=== PATIENT | female | born 1975 | race Caucasian/White ===

== ENCOUNTER 2022-09-08 11:02 | Outpatient (OUT) | payer OTHER, SELFPAY ==
--- NOTE | 2022-09-08 11:13 | ECG_ITS ---
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
--- NOTE | 2022-09-08 11:30 | XR_ITS ---
[address] [address] Patient Name: BIGG THOMPSON MRN: [id number] date: 1975 Sex: F Assigned Patient Location: CARD Current Patient Location: Accession/Order Number: [id number] Exam Date: 09/08/2022 11:30 Report Date: 09/09/2022 07:26 At the request of: STEPHANIE ENCARNACION Procedure: XR chest 2V EXAMINATION: XR chest 2V HISTORY: Chronic Cough R05.3 COMPARISON: No relevant comparison available. TECHNIQUE: PA and lateral FINDINGS: LUNGS: No significant pulmonary parenchymal abnormalities. VASCULATURE: No increased pulmonary vasculature. PLEURA: No pneumothorax, effusion, or pleural thickening. CARDIAC: No cardiomegaly or cardiac silhouette abnormality. MEDIASTINUM: No visible mass or adenopathy. BONES: No fracture or visible bone lesion. S-shaped scoliosis OTHER: Negative. IMPRESSION: No acute cardiopulmonary process Electronically authenticated by: EVELYN CLAROS Date: 09/09/2022 07:26
[2022-09-08 12:00] LABS: Basophils Absolute Auto 0.1 10^3/uL (0.0-0.1); Basophils Percent Auto 0.6 % (0.2-2.0); Eosinophils Absolute Auto 0.1 10^3/uL (0.0-0.7); Hematocrit 44.4 % (36.0-48.0); Hemoglobin 14.5 g/dL (12.0-16.0); Immature Granulocytes Abs Auto 0.04 10^3/uL (0.00-0.03); Immature Granulocytes Pct Auto 0.5 % (0.0-0.5); Lymphocytes Absolute Auto 0.9 10^3/uL (1.2-3.8); Mean Corpuscular HGB Conc 32.7 g/dL (29.9-35.2); Mean Corpuscular Hemoglobin 29.4 pg (26.7-34.0); Mean Corpuscular Volume 90.1 fL (81.0-99.0); Mean Platelet Volume 10.1 fL (9.5-13.5); Monocytes Absolute Auto 0.6 10^3/uL (0.3-0.8); Monocytes Percent Auto 7.3 % (1.7-12.0); Neutrophils Absolute Auto 6.1 10^3/uL (1.4-6.5); Neutrophils Percent Auto 78.6 % (43.0-75.0); Platelet Count 326 10^3/uL (150-450); Red Blood Count 4.93 10^6/uL (4.20-5.40); Red Cell Distribution Width 12.4 % (11.0-15.0); White Blood Count 7.8 10^3/uL (4.0-11.0)
[2022-09-08 12:16] LABS: Anion Gap 11.2; BUN Creatinine Ratio 16.5; Calcium 9.2 mg/dL (8.5-10.1); Carbon Dioxide 27.4 mmol/L (21.0-32.0); Chloride 105 mmol/L (98-107); Estimated GFR (African America >60 (>=60); Estimated GFR (Non-African Ame >60 (>=60); Glucose 84 mg/dL (74-106); Potassium 3.6 mmol/L (3.5-5.1); Sodium 140 mmol/L (136-145)
[2022-09-08 12:30] LABS: D Dimer 0.24 mg/L FEU (<=0.59)
== END 2022-09-08 11:03 | disposition home or self-care (01) ==
LOC: CARD 11:06
PROVIDERS: PCP Family Medicine; Visit Provider Family Medicine
DX: R05.3 Chronic cough (principal); R00.0 Tachycardia, unspecified
CPT/HCPCS: 36415; 71046; 80048; 84443; 85025; 85378; 93005

== ENCOUNTER 2022-09-12 08:10 | Outpatient (OUT) | payer OTHER, SELFPAY ==
--- NOTE | 2022-09-12 08:30 | CA_ITS ---
Patient Name Site Name BIGG THOMPSON [facility] Account No Medical Record Number Age Sex Date Time [id number] [facility]:[id number] F 09/12/2022 08:18 At the Request Of Emily Prather ECHOCARDIOGRAM REPORT PROCEDURE: CA ECHO DOPPLER COMPLETE INDICATIONS: Abnormal EKG COMPARISON: None. DESCRIPTION: COMPLETE ECHOCARDIOGRAM Real-time transthoracic echocardiography with 2D, M-mode, spectral and color flow Doppler performed. QUALITY: Technical quality was good. LEFT VENTRICLE: Normal chamber size. Borderline left ventricular hypertrophy. Normal systolic function. Normal LV EF: Normal left ventricular ejection fraction, (>55%). DIASTOLIC: Normal diastolic function. ATRIAL SEPTUM: Vvisually appears intact. LEFT ATRIUM: Normal chamber size. RIGHT ATRIUM: Normal chamber size. RIGHT VENTRICLE: Normal chamber size. Normal right ventricular systolic function. TRICUSPID VALVE: Normal mobility and thickness. No stenosis with mild regurgitation. No evidence of pulmonary hypertension. RVSP 22 mmHg MITRAL VALVE: Normal mobility and thickness. No evidence of mitral valve stenosis. There is no mitral annular calcification. No mitral regurgitation. AORTIC VALVE: Normal trileaflet appearance. No visible sclerosis. Normal leaflet mobility. No evidence of aortic valve stenosis. No aortic regurgitation. AORTIC ROOT: Normal diameter and appearance. PULMONIC VALVE: Normal thickness and mobility. No stenosis. No regurgitation. PERICARDIUM: No evidence of pericardial effusion. IVC: Collapses with inspirations. PLEURA: CONCLUSION: 1. Normal ventricular function. LVEF is 55 to 60%. 2. No significant valvular dysfunction. 3. Normal right-sided pressures. 4. No pericardial effusion. Adult Echocardiography Procedure Report Left Ventricle LVEDD (3.7 - 5.6 cm): 3.36 cm LVESD (2.2 - 4.0 cm): 2.33 cm LVIVS thickness (0.6 - 1.2 cm): 1.04 cm LVPW thickness (0.5 - 1.0 cm): 0.88 cm e': 0.11 m/s E - e': 6.50 LVOT Max Gradient: 4.83 mm[Hg], 5.48 mm[Hg] LVOT Area (cm2): 1.13 m/s Peak Velocity (LVOT): 1.10 m/s, 1.17 m/s Mean Velocity (LVOT): 0.82 m/s LVOT Diameter 2.12 cm Left Atrium LA Volume Index (2D A2C): 17.78 ml/m2 Left Atrium Systolic Dimension: 3.06 cm Mitral Valve MV E to A Ratio: 0.75 Mitral Valve A-Wave Peak Velocity: 0.92 m/s Mitral Valve E-Wave Peak Velocity: 0.69 m/s Right Ventricle Aorta AO Root Diam: 3.03 cm Ascending Ao Diam: 3.08 cm Aortic Valve AoV Area (Peak Jagdish): 3.38 cm2, 3.28 cm2, 3.49 cm2 AoV Area (VTI): 2.71 cm2, 2.72 cm2, 2.71 cm2 Peak Velocity(Antegrade Flow): 1.19 m/s, 1.19 m/s Peak Gradient(Antegrade Flow): 5.64 mm[Hg], 5.64 mm[Hg] Mean Velocity(Antegrade Flow): 0.85 m/s, 0.89 m/s Mean Gradient(Antegrade Flow): 3.26 mm[Hg], 3.52 mm[Hg] Velocity Time Integral: 21.79 cm, 22.76 cm Tricuspid Valve Peak Velocity (Regurgitant Flow): 2.18 m/s, 2.11 m/s Pulmonic Valve Peak Velocity: 0.87 m/s Peak Gradient: 2.98 mm[Hg], 3.03 mm[Hg] Right Atrium Right Atrium Systolic Pressure: 11.98 ml, 11.07 ml, 12.88 ml Dictated by: Ben Robles M.D. on 09/12/2022 at 17:56 Approved by: Ben Robles M.D. on 09/12/2022 at 17:58
== END 2022-09-12 08:11 | disposition home or self-care (01) ==
LOC: CARD 08:10
PROVIDERS: PCP Family Medicine; Visit Provider Family Medicine
DX: R94.31 Abnormal electrocardiogram [ECG] [EKG] (principal)
CPT/HCPCS: 93306

== ENCOUNTER 2023-12-11 15:56 | Outpatient (OUT) | payer OTHER, SELFPAY ==
--- NOTE | 2023-12-11 16:15 | XR_ITS ---
[address] [address] Patient Name: BIGG THOMPSON MRN: [id number] date: 1975 Sex: F Assigned Patient Location: LAB Current Patient Location: Accession/Order Number: [id number] Exam Date: 12/11/2023 16:08 Report Date: 12/12/2023 16:37 At the request of: STEPHANIE ENCARNACION Procedure: XR chest 2V EXAM: XR chest 2V CLINICAL INDICATION: Left Sided Chest Wall Pain COMPARISON: 09/08/2022 TECHNIQUE: 2 views of chest performed. FINDINGS: Lungs: No convincing focal infiltrates. No pleural effusion or pneumothorax. Heart: Cardiac and mediastinal contours are unremarkable. No overt pulmonary vascular congestion. Osseous structures: No acute abnormalities. XR/XR chest 2V IMPRESSION: No acute cardiopulmonary process. Electronically authenticated by: DOTTY SANZ Date: 12/12/2023 16:37
[2023-12-11 17:45] LABS: Free T4 1.08 ng/dL (0.76-1.46)
[2023-12-11 17:53] LABS: Thyroid Stimulating Hormone 2.242 uIU/mL (0.358-3.740)
== END 2023-12-11 15:57 | disposition home or self-care (01) ==
LOC: LAB 15:57
PROVIDERS: PCP Family Medicine; Visit Provider Family Medicine
DX: E03.9 Hypothyroidism, unspecified (principal); R07.89 Other chest pain
CPT/HCPCS: 36415; 71046; 84439; 84443

== ENCOUNTER 2024-10-11 10:49 | Outpatient (OUT) | payer OTHER, SELFPAY ==
--- OUTSIDE RECORDS SUMMARY | 2024-10-11 10:51 | XMS_ITS | Encounter Summary ---
Author Organization [facility] Address [address] [place] [address] [place] [address] Care Team Providers Care Truck Body Repairer Name Role Phone Emily Prather MD Primary Care Provider [phone] Encounter Details Date Type Department Care Team (Late st Contact Info) Description 09/30/2024 Telephone [facility] [place] [address] [place] [phone] Emi Hinton MA Social History Tobacco Use Types Packs/Day Years Used Date Smoking Tobacco: Never Smokeless Tobacco: Never Alcohol Use Standard Drinks/Week Comments Not Currently 0 (1 standard drink = 0.6 oz pur e alcohol) AUDIT-C Answer Date Recorded Q1: How often do you have a drink containing alc ohol? Monthly or less 09/25/2024 Q2: How many drinks containi ng alcohol do you have on a typical day when you are drinking? 1 or 2 09/25/2024 Q3: How often do you have si x or more drinks on one occasion? Never 09/25/2024 PHQ-2 Answer Date Recorded Patient Health Questionnaire-2 Score 0 09/25/2024 Comments No Sex and Gender Information Value Date Recorded Sex Assigned at Not on file Legal Sex Female 7:24 PM EDT Gender Identity Not on file Sexual Orientation Not on file documented as of this encounter Miscellaneous Notes * Telephone Encounter - Emi Hinton MA - 09/30/2024 3:43 PM EDT Pt emailed. Printed labs to be scanned into chart. documented in this encounter Plan of Treatment Upcoming Encounters Date Type Department Care Team (Late st Contact Info) Description 09/26/2025 10:45 AM EDT Office Visit [facility] [address] [place] [phone] Reji Salcido DO [address] [place] [address] documented as of this encounter Visit Diagnoses Not on filedocumented in this encounter Care Teams Truck Body Repairer Relationship Specialty Start Date End Date Emily Prather MD [address] [facility] [place] [phone] PCP - General Family Medicine 09/20/23 documented as of this encounter
--- OUTSIDE RECORDS SUMMARY | 2024-10-11 10:51 | XMS_ITS | Clinical Summary ---
Author Organization [facility] Address [id number] [address] [place] [address] Care Team Providers Care Water Meter Installer Name Role Phone Emily Prather MD Primary Care Provider [phone] Allergies Active Allergy Reactions Criticality Noted Date Comments Pneumococcal 23-Valent Polysaccharide Vaccine Other (See Comments) 12/08/2014 Chills, tremors, nausea, headache Medications acyclovir (ZOVIRAX) 400 mg tablet 2 Active albuterol (PROVENTIL HFA;VENTOLIN HFA) 90 mcg/actuation inhaler INHALE 2 PUFFS INTO THE LUNGS EVERY 4 HOURS NEEDED 2 Active azithromycin (ZITHROMAX) 250 mg tablet TAKE 2 TABLETS BY MOUTH TODAY, THEN TAKE 1 TABLET DAILY FOR 4 DAYS 2 Active BENLYSTA 200 mg/mL auto-injector 2 Active belimumab (BENLYSTA) 200 mg/mL auto-injector Inject 200 mg under the skin. 2 Active ENSKYCE 0.15-0.03 mg per tablet 2 Active hydrOXYchloroQU INE (PLAQUENIL) 200 mg tablet 2 Active ketoconazole (NIZORAL) 2 % cream Apply topically daily. 2 Active SYNTHROID 50 mcg tablet 2 Active methylPREDNISol one (MEDROL, MYESHA,) 4 mg tablet TAKE 6 TABLETS ON DAY 1 DIRECTED ON PACKAGE AND DECREASE BY 1 TAB EACH DAY FOR A TOTAL OF 6 DAYS 2 Active mycophenolate (CELLCEPT) 500 mg tablet 2 Active sertraline (ZOLOFT) 25 mg tablet Take 1 tablet by mouth in the morning. 1 Active traZODone (DESYREL) 50 mg tablet 2 Active venlafaxine XR (EFFEXOR-XR) 75 mg 24 hr capsule 2 Active Social History Tobacco Use Types Packs/Day Years Used Date Smoking Tobacco: Never Smokeless Tobacco: Never Alcohol Use Standard Drinks/Week Comments Never 0 (1 standard drink = 0.6 oz pur e alcohol) Childcare Answer Date Recorded Childcare Unknown 08/15/2018 Employment Answer Date Recorded Employment Unknown 08/15/2018 Comments Unknown Sex and Gender Information Value Date Recorded Sex Assigned at Not on file Legal Sex Female 11:40 AM EDT Gender Identity Not on file Sexual Orientation Not on file Last Filed Vital Signs Vital Sign Reading Time Taken Comments Blood Pressure 180/105 07/01/2021 3:54 PM EDT Pulse 108 07/01/2021 3:54 PM EDT Temperature - - Respiratory Rate - - Oxygen Saturation 100% 07/01/2021 3:54 PM EDT Inhaled Oxygen Concentration - - Weight 73.9 kg (163 lb) 07/01/2021 3:54 PM EDT Height 200.7 cm (6' 7 ) 07/01/2021 3:54 PM EDT Body Mass Index 18.36 07/01/2021 3:54 PM EDT Plan of Treatment Health Maintenance Due Date Last Done Comments Depression Screening 1988 Tobacco Screening 1988 Adult BMI Screening 1994 DTaP,Tdap and Td Vaccines (1 - Tdap) 11/05/1995 Pap Smear 1997 COVID-19 Vaccine (2023-2 5 season) 2023 05/08/2020, 04/17/2020 Influenza Vaccine 2024 11/24/2020, , 12/05/2018, Additional history exists Medical Devices Not on file Insurance [employer] Care Teams Water Meter Installer Relationship Specialty Start Date End Date Emily Prather MD [address] [place] [address] PCP - General Family Medicine 06/10/21
--- OUTSIDE RECORDS SUMMARY | 2024-10-11 10:51 | XMS_ITS | Encounter Summary ---
Author Organization [facility] Address [address] [place] [address] Phone Care Team Providers Care Rehab Spec Name Role Phone Emily Prather MD Primary Care Provider [phone] Encounter Details Date Type Department Care Team (Late st Contact Info) Description 09/08/2022 Orders Only [facility] [address] [place] [address] Conversion, Onbase Social History Tobacco Use Types Packs/Day Years Used Date Smoking Tobacco: Never Assessed Comments Unknown Sex and Gender Information Value Date Recorded Sex Assigned at Not on file Legal Sex Female 10:03 AM EDT Gender Identity Not on file Sexual Orientation Not on file documented as of this encounter Plan of Treatment Upcoming Encounters Date Type Department Care Team (Late st Contact Info) Description 08/12/2025 10:00 AM EDT Office Visit [address] [place] [phone] Nupur Lopez MD [address] [facility] [address] [place] [address] Scheduled Orders Name Type Priority Associated Diagnoses Orde r Schedule OUTSIDE LAB SCAN Lab Ordered: 09/08/2022 documented as of this encounter Visit Diagnoses Not on filedocumented in this encounter Care Teams Rehab Spec Relationship Specialty Start Date End Date Emily Prather MD [facility] [place] [address] [place] [address] PCP - General 09/19/22 documented as of this encounter
--- OUTSIDE RECORDS SUMMARY | 2024-10-11 10:51 | XMS_ITS | Clinical Summary ---
Author Organization [facility] Address [address] [place] [address] Care Team Providers Care Design Eng Name Role Phone Emily Prather MD Primary Care Provider [phone] Allergies No known active allergies Medications Desogestrel-Ethi nyl Estradiol (DESOGEN) 0.15-30 mg-mcg per tablet Take 1 tablet by mouth once daily. 0 08/19/2011 Active predniSONE 5 mg tablet Take 1 tablet by mouth as needed. 08/19/2011 Active buPROPion XL (WELLBUTRIN XL) 150 mg 24 hr tablet Take 1 tablet by mouth once daily. 0 08/19/2011 Active hydroxychloroqui ne (PLAQUENIL) 200 mg tablet Take 1 tablet by mouth twice daily. 0 08/19/2011 Active Cholecalciferol, Vitamin D3, 2,000 unit Tab Take 1 tablet by mouth once daily. 0 08/19/2011 Active cycloSPORINE (RESTASIS) 0.05 % ophthalmic emulsion Use 1 Drop in both eyes twice daily. 0 08/19/2011 Active Active Problems Problem Noted Date Diagnosed Date Lupus (systemic lupus erythematosus) 08/19/2011 Family History Medical History Relation Comments Arthritis Mother Colon Cancer Paternal Grandfather Cancer Paternal Grandmother Relation Status Comments Father Alive Mother Alive Paternal Grandfather Paternal Grandmother Social History Tobacco Use Types Packs/Day Years Used Date Smoking Tobacco: Never Alcohol Use Standard Drinks/Week Comments Yes 0 (1 standard drink = 0.6 oz pur e alcohol) weekends Comments Unknown Sex and Gender Information Value Date Recorded Sex Assigned at Not on file Legal Sex Female 10:14 AM EST Gender Identity Not on file Sexual Orientation Not on file Last Filed Vital Signs Vital Sign Reading Time Taken Comments Blood Pressure 146/80 08/19/2011 10:31 AM EDT Pulse - - Temperature 37.1 C (98.8 F) 08/19/2011 10:31 AM EDT Respiratory Rate - - Oxygen Saturation - - Inhaled Oxygen Concentration - - Weight 64.9 kg (143 lb) 08/19/2011 10:31 AM EDT Height 169.5 cm (5' 6.75 ) 08/19/2011 10:31 AM E DT Body Mass Index 22.57 08/19/2011 10:31 AM EDT Plan of Treatment Health Maintenance Due Date Last Done Comments Anxiety Screening 1994 Depression Screening 1994 HIV Screening 1994 DTaP,Tdap,Td Vaccine (1 - Tdap) 11/05/1995 Hepatitis B Vaccine (1 of 3 - 19+ 3-dose series) 11/04 Cervical Cancer Screening 09/03/2013 09/03/[address] Colonography 2021 Cologuard (FIT-DNA) 2021 Colonoscopy 2021 Colorectal Cancer Screening 2021 Diabetes Screening 2021 08/19/2011 Fecal Occult Blood 2021 Lipid Screening 2021 Sigmoidoscopy 2021 Influenza Vaccine (#1) 2024 Hepatitis C Screening Completed 08/19/2011 Procedures Procedure Name Priority Date/Time Associated Diagnosis Comments HEP REMOTE PANEL BL Routine 08/19/2011 1 2:28 PM EDT Lupus (systemic lupus erythematosus) COMPREHENSIVE METABOLIC PANEL Routine 08/19/2011 12:28 PM EDT Lupus (systemic lupus erythematosus) from Last 3 Months or Most Recently Relevant to Health Maintenance Results * HEP REMOTE PANEL BL (08/19/2011 12:28 PM EDT) Hep B Core Ab, Total Negative NEGAT [facility] Hep C Antibody IA Negative NEGAT [facility] HBsAg Negative NEGAT [facility] Hep B Surface Ab, Qual Negative NEGAT [facility] Comment: A negative Hepatitis B Surface Antibody is indicative of: 1)no prior exposure to HBV, 2)lack of antibody response to an acute or chronic HBV infection, 3)lack of antibody response to HBV vaccination, or, 4)loss of immunity that followed either vaccination or infection. Blood specimen (specimen) BLOOD SPECIMEN / Unknown 08/19/2011 12:28 PM EDT 08/19/2011 12:34 PM EDT us Carley Roque MD LABORATORY Final Result [facility] [address] [place] [address] * (ABNORMAL) COMP METABOLIC PANEL (08/19/2011 12:28 PM EDT) Protein, Total 7.5 6.0 - 8.4 g/dL [facility] Albumin 4.0 3.5 - 5.0 g/dL [facility] Calcium 9.6 8.5 - 10.5 mg/dL [facility] Bilirubin, Total 0.2 0.0 - 1.5 mg/dL [facility] Alkaline Phosphatase 38(L) 40 - 150 U/L [facility] AST 24 7 - 40 U/L [facility] Glucose 90 65 - 100 mg/dL [facility] BUN 20 8 - 25 mg/dL [facility] Creatinine 0.81 0.70 - 1.40 mg/dL [facility] Sodium 139 132 - 148 mmol/L [facility] Potassium 4.1 3.5 - 5.0 mmol/L [facility] Chloride 105 98 - 110 mmol/L [facility] CO2 22(L) 23 - 32 mmol/L [facility] Anion Gap 12 0 - 15 mmol/L [facility] ALT 17 0 - 45 U/L [facility] eGFR- >60 [facility] eGFR-All Other Races >60 . [facility] Comment: eGFR (Estimated GFR) Units of measure: mL/min/1.73 meters squared eGFR is derived from the reexpressed MDRD Study equation using the following parameters: serum creatinine, age, gender and race. The creatinine assay has been calibrated to be traceable to IDMS. An eGFR <60 mL/min/1.73m2 for >3 months is consistent with chronic kidney disease. Refer to KDOQI guidelines for clinical interpretation. Blood specimen (specimen) BLOOD SPECIMEN / Unknown 08/19/2011 12:28 PM EDT 08/19/2011 12:34 PM EDT us Carley Roque MD LABORATORY Final Result [facility] [address] [place] [address] from Last 3 Months or Most Recently Relevant to Health Maintenance Insurance [address] [place] [address] [facility] PPO Care Teams Design Eng Relationship Specialty Start Date End Date Emily Prather MD [address] [place] [phone] PCP - General Family Medicine 06/06/11
--- OUTSIDE RECORDS SUMMARY | 2024-10-11 10:51 | XMS_ITS | Encounter Summary ---
Author Organization [facility] Address [address] [place] [address] Care Team Providers Care Gear Cutting Machine Set Up Operator Name Role Phone Emily Prather MD Primary Care Provider [phone] Encounter Details Date Type Department Care Team (Late st Contact Info) Description 10/05/2023 External Result Encounter [facility] External Department Unsolicited Reji Salcido, DO [address] [place] [address] Social History Tobacco Use Types Packs/Day Years Used Date Smoking Tobacco: Never Smokeless Tobacco: Never Alcohol Use Standard Drinks/Week Comments Not Currently 0 (1 standard drink = 0.6 oz pur e alcohol) AUDIT-C Answer Date Recorded Q1: How often do you have a drink containing alcohol? Never 09/20/2023 Q2: How many drinks containi ng alcohol do you have on a typical day when you are drinking? Patient does not drink Q3: How often do you have si x or more drinks on one occasion? Never 09/20/2023 PHQ-2 Answer Date Recorded Patient Health Questionnaire-2 Score 0 09/20/2023 Comments No Sex and Gender Information Value [...] [facility] [address] [place] [phone] Reji Salcido, DO [address] [place] [address] documented as of this encounter Procedures Procedure Name Priority Date/Time Associated Diagnosis Comments BI MAMMOGRAM SCREENING TOMOSYNTHESIS BILATERAL 10/05/2023 1:40 PM EDT documented in this encounter Results * Bilateral screening mammogram with tomosynthesis (10/05/2023 1:40 PM EDT) Anatomical Region Laterality Modality Breast Bilateral Mammography 10/05/2023 1:40 PM EDT Impressions 10/05/2023 1:57 PM EDT No mammographic evidence of malignancy. Routine follow-up recommended in one year. RESULT CODE: 2 Benign Findings(s) DENSITY CODE: 3 (approximately 51-75% glandular) FOLLOW UP: 1YR THE FALSE-NEGATIVE RATE OF MAMMOGRAPHY IS APPROXIMATELY 10%. IMAGING OF A PALPABLE ABNORMALITY MUST BE BASED ON CLINICAL GROUNDS. PATIENT WAS ENTERED INTO A REMINDER SYSTEM WITH A TARGET DUE DATE FOR THE NEXT MAMMOGRAM. Impression dictated by: Blayne Hansen M.D.10/05/2023 1:55 PM Dictation Location: [facility] Transcribed By: [facility] 10/05/23 1355 Dictated By: Blayne Hansen DO 10/05/23 1340 Signed By: <Electronically signed by Blayne Hansen DO in OV> 10/05/23 1355 Narrative 10/05/2023 1:57 PM EDT [facility] [address] [place] [id number] Mammography Report Signed Patient: Cande Cordova MR#: [id number] 0 : 1975 Acct:[id number] Age/Sex: 47 / F ADM Date: 10/05/23 Loc: [place] Room: Type: [facility] Attending Dr: Reji Salcido DO Copies to: MD Reji Vale DO Ordering Provider: Reji Salcido DO Date of Service: 10/05/23 MM/MM screening mammo BI w/CAD: SCREENING BILATERAL Screening Full Field digital mammogram with 3-D imaging. Full field digital CC and MLO imaging performed. CAD utilized. COMPARISON: 09/17/2021 HISTORY: Annual screening BREAST COMPOSITION: The breast parenchyma is heterogeneously dense. BREAST CALCIFICATIONS: Benign calcifications present. VASCULAR CALCIFICATIONS: None ARCHITECTURAL DISTORTION: None BREAST NODULE: None AXILLARY LYMPH NODES: Normal POSTSURGICAL CHANGES: None MM/MM screening mammo BI w/CAD Procedure Note Radiology, Radiologist, MD - 10/05/2023 [facility] [address] [place] [address] Mammography Report Signed Patient: Cande Cordova MMR#: [id number] 0 : 1975Acct:[id number] Age/Sex: 47 / FADM Date: 10/05/23 Loc: ME Room:Type: [facility] Attending Dr: Reji Salcido DO Copies to: MD Reji Vale DO Ordering Provider: Reji Salcido DO Date of Service: 10/05/23 MM/MM screening mammo BI w/CAD: SCREENING BILATERAL Screening Full Field digital mammogram with 3-D imaging. Full field digital CC and MLO imaging performed. CAD utilized. COMPARISON: 09/17/2021 HISTORY: Annual screening BREAST COMPOSITION: The breast parenchyma is heterogeneously dense. BREAST CALCIFICATIONS: Benign calcifications present. VASCULAR CALCIFICATIONS: None ARCHITECTURAL DISTORTION: None BREAST NODULE: None AXILLARY LYMPH NODES: Normal POSTSURGICAL CHANGES: None MM/MM screening mammo BI w/CAD IMPRESSION: No mammographic evidence of malignancy. Routine follow-up recommended inone year. RESULT CODE: 2 Benign Findings(s) DENSITY CODE: 3 (approximately 51-75% glandular) FOLLOW UP: 1YR THE FALSE-NEGATIVE RATE OF MAMMOGRAPHY IS APPROXIMATELY 10%. IMAGING OF A PALPABLE ABNORMALITY MUST BE BASED ON CLINICAL GROUNDS. PATIENT WAS ENTERED INTO A REMINDER SYSTEM WITH A TARGET DUE DATE FOR THENEXT MAMMOGRAM. Impression dictated by: Blayne Hansen M.D.10/05/2023 1:55 PM Dictation Location: [facility] Transcribed By: ANTONY 10/05/23 1353 Dictated By: Blayne Hansen DO 10/05/23 1340 Signed By: <Electronically signed by Blayne Hansen DO in OV> 10/05/23 1355 Reji Salcido DO IMG BI PROCEDURES Final Resu lt documented in this encounter Visit Diagnoses Not on filedocumented in this encounter Care Teams Gear Cutting Machine Set Up Operator Relationship Specialty Start Date End Date Emily Prather MD [address] [place] [phone] PCP - General Family Medicine 09/20/23 documented as of this encounter
--- OUTSIDE RECORDS SUMMARY | 2024-10-11 10:51 | XMS_ITS | Clinical Summary ---
Author Organization [facility] Address [address] [place] [address] Care Team Providers Care Sound Truck Operator Name Role Phone Emily Prather MD Primary Care Provider [phone] Allergies Active Allergy Reactions Criticality Noted Date Comments Pneumococcal Polysaccharide Vaccine 12/08/2014 Other Reaction(s): Other Chills, tremors, nausea, headache Medications Benlysta 200 MG/ML injection as directed Subcutaneous 06/21/19 23 Active Plaquenil 200 MG tablet as directed Orally 05/27/19 23 Active predniSONE (Deltasone) 5 MG tablet 07/03/19 23 Active Restasis 0.05 % ophthalmic emulsion 02/23/20 22 Active mycophenolate (Cellcept) 500 MG tablet Take 1,000 mg by mouth in the morning and 1,000 mg in the evening. 04/29/19 24 Active predniSONE (Deltasone) 10 MG tablet Take 10 mg by mouth Daily 09/12/19 25 Active nebivolol (Bystolic) 5 MG tablet 07/20/19 25 Active Synthroid 75 MCG tablet 08/06/19 25 Active cyanocobalamin (Vitamin B-12) 1000 MCG tablet Take 1,000 mcg by mouth in the morning. 03/31/19 25 Active desogestrel-ethin yl estradiol (Enskyce) 0.15-30 MG-MCG tabletIndications :Encounter for surveillance of contraceptive pills TAKE 1 TABLET DAILY FOR CONTINUOUS USE OF ACTIVE PILLS ONLY. 112 tablet 4 09/26/19 25 Active nebivolol (Bystolic) 10 MG tablet Take 10 mg by mouth in the morning. 11/01/19 23 025 Discontin ued(Thera py completed ) phentermine (Adipex-P) 37.5 MG tablet Daily 08/25/19 24 025 Discontin ued(Thera py completed ) traZODone (Desyrel) 50 MG tablet Take 50 mg by mouth at bedtime 1/2 tablet PRN 08/25/19 24 025 Discontin ued(Thera py completed ) venlafaxine XR (Effexor XR) 75 MG 24 hr capsule Take 75 mg by mouth Daily 08/25/19 24 025 Discontin ued(Thera py completed ) desogestrel-ethin yl estradiol (Enskyce) 0.15-30 MG-MCG tabletIndications :Encounter for surveillance of contraceptive pills TAKE 1 TABLET DAILY FOR CONTINUOUS USE 112 tablet 09/03/19 025 Discontin ued(Reord er) Active Problems Problem Noted Date Diagnosed Date Frontal sinusitis 09/19/2023 Insomnia 09/19/2023 Onychocryptosis 09/19/2023 Raynaud disease 09/19/2023 Immunosuppressed status 09/12/2023 Overweight with body mass in dex (BMI) of 27 to 27.9 in adult 07/21/2023 Elevated blood pressure read ing without diagnosis of hypertension 05/15/2023 Lupus (systemic lupus erythematosus) 12/12/2022 Dysphagia 09/14/2022 Acquired hypothyroidism 05/26/2021 BPPV (benign paroxysmal positional vertigo) 09/03 Examination of participant in clinical trial 05/2014 Resolved Problems Problem Noted Date Diagnosed Date Resolved Date Seizure 08/29/2015 09/23/2022 Encounters Date Type Department Care Team Description 09/30/2024 Telephone [facility] [address] [place] [address] Emi Hinton MA 09/25/2024 10:30 AM EDT Office Visit [facility] [address] [place] [address] Reji Salcido DO Encounter for gynecological examination without abnormal finding (Primary Dx); Screening for malignant neoplasm of cervix; Breast cancer screening by mammogram; Encounter for surveillance of contraceptive pills; Weight gain 09/25/2024 Travel 09/02/2024 Refill [facility] [address] [place] [address] Reji Salcido, DO Encounter for surveillance of contraceptive pills from Last 3 Months Immunizations Immunization Administration Dates Next Due Influenza, Unspecified 12/05/2021,01/06/2014, Influenza, injectable, MDCK, preservative free, quadrivalent 12/07/2018,12/05/2018,12/09/2017,12/06,12/15/2016 Influenza, injectable, quadr ivalent, preservative free 11/26/2022,12/05/2021,11/24/2020,11/24,12/04/2018,12/17/2015 Influenza, seasonal, injecta ble, preservative free 01/02/2024,12/26/2014 Influenza, seasonal, intrade rmal, preservative free 12/05/2015 Pneumococcal Conjugate PCV 13 01/29/2014 Pneumococcal Polysaccharide PPSV23 04/21/2014 Family History Medical History Relation Name Comments Colon cancer Maternal Grandfather bladder cancer Maternal Grandfather Relation Name Status Comments Father Alive Maternal Grandfather Mother Alive Social History Tobacco Use Types Packs/Day Years Used Date Smoking Tobacco: Never Smokeless Tobacco: Never Tobacco Cessation:Counseling Given: Yes Alcohol Use Standard Drinks/Week Comments Not Currently [...] Sign Reading Time Taken Comments Blood Pressure 136/86 09/25/2024 10:19 AM EDT Pulse 89 06/30/2023 2:56 PM EDT Temperature - - Respiratory Rate - - Oxygen Saturation - - Inhaled Oxygen Concentration - - Weight 78 kg (172 lb) 09/25/2024 10:19 AM EDT Height 170.2 cm (5' 7 ) 09/25/2024 10:19 AM EDT Body Mass Index 26.94 09/25/2024 10:19 AM EDT Plan of Treatment Upcoming Encounters Date Type Department Care Team (Late st Contact Info) Description 09/26/2025 10:45 AM EDT Office Visit [facility] [address] [place] [address] Reji Salcido DO [address] [place] [address] Health Maintenance Due Date Last Done Comments CT Colonography 1976 Colonoscopy 1976 Colorectal Cancer Screening 1976 FIT-DNA 1976 FIT 1976 FOBT 1975 Sigmoidoscopy 1975 Influenza Vaccine (#1) 2024 , 11/26/2022, 12/05/2021, Additional history exists Mammogram 10/07/2025 10/07/2024, 0803/2023, 09/21/2022, Additional history exists Pap Smear 09/19/2026 09/20/2023, 09/14/2022 Cervical Cancer Screening 09/25/2029 HPV/Cotest 09/25/2029 09/25/2024, 09/03, 09/08/2021, Additional history exists Procedures Procedure Name Priority Date/Time Associated Diagnosis Comments BI MAMMOGRAM SCREENING TOMOSYNTHESIS BILATERAL Routine 10/07/2024 11:25 AM EDT Breast cancer screening by mammogram IGP, APT HPV,RFX 16/18,45 Routine 09/25/2024 12:00 AM EDT Screening for malignant neoplasm of cervix THINPREP TIS PAP AND HPV MRNA E6/E7 WITH REFLEX TO HPV 16,18/45 Routine 09/20/2023 11:23 AM EDT Screening for malignant neoplasm of cervix from Last 3 Months or Most Recently Relevant to Health Maintenance Results * Bilateral screening mammogram with tomosynthesis (10/07/2024 11:25 AM EDT) Anatomical Region Laterality Modality Breast Bilateral Mammography 10/07/2024 11:2 5 AM EDT Impressions 10/07/2024 11:29 AM EDT NO MAMMOGRAPHIC EVIDENCE OF MALIGNANCY. ROUTINE FOLLOW-UP IS RECOMMENDED IN ONE YEAR. RESULT CODE: 1 Negative DENSITY CODE: 3 (approximately 51-75% glandular) The breasts are heterogeneously dense, which may obscure small masses. FOLLOW UP: 1YR The false-negative rate of mammography is approximately 10-percent. Management of a palpable abnormality must be based on clinical grounds. Patient was entered into a reminder system with a target due date for the next mammogram. Impression dictated by: Luis Hurd Jr., D.O. 10/07/2024 11:26 AM Dictation Location: [facility] Dictated By: Luis Hurd Jr, DO 10/07/24 1125 Signed By: <Electronically signed by Luis Hurd Jr, DO in OV> 10/07/24 1126 Narrative 10/07/2024 11:29 AM EDT [facility] [address] [place] [address] Mammography Report Signed Patient: Cande Cordova MR#: [id number] 0 : 1975 Acct:[id number] Age/Sex: 48 / F Adm Date: 10/07/24 Loc: [place] Room: Type: [facility] Attending Dr: Reji Salcido DO Ordering Provider: Reji Salcido DO Date of Service: 10/07/24 Procedure(s): MM screening mammo BI w/CAD Accession Number(s): ([id number]) MM/MM screening mammo BI w/CAD: screening Copies to: MD Reji Vale DO CLINICAL DATA: Screening for malignancy. SCREENING MAMMOGRAM - FULL FIELD DIGITAL WITH TOMOSYNTHESIS AND CAD COMPARISON:Mammograms dating back to 2019 Tomosynthesis craniocaudal and mediolateral oblique views of both breasts were obtained using low- dose digital technique. This examination was reviewed with the aid of CAD. FINDINGS: The breast parenchyma is heterogeneously dense. There are no dominant masses, typically malignant calcifications or architectural distortion. There has been no significant interval change. MM/MM screening mammo BI w/CAD Procedure Note Luis Hurd Jr., - 10/07/2024 [place] [id number] Mammography Report Signed Patient: Cande Cordova MMR#: [id number] 0 : 1975Acct:[id number] Age/Sex: 48 / FAdm Date: 10/07/24 Loc: [place] Room:Type: [facility] Attending Dr: Reji Salcido DO Ordering Provider: Reji Salcido DO Date of Service: 10/07/24 Procedure(s): MM screening mammo BI w/CAD Accession Number(s): ([id number]) MM/MM screening mammo BI w/CAD:screening Copies to: MD Reji Vale DO CLINICAL DATA: Screening for malignancy. SCREENING MAMMOGRAM - FULL FIELD DIGITAL WITH TOMOSYNTHESIS AND CAD COMPARISON:Mammograms dating back to 2019 Tomosynthesis craniocaudal and mediolateral oblique views of both breastswere obtained using low- dose digital technique. This examination was reviewed with the aid ofCAD. FINDINGS: The breast parenchyma is heterogeneously dense. There are no dominantmasses, typically malignant calcifications or architectural distortion. There has been no significantinterval change. MM/MM screening mammo BI w/CAD IMPRESSION: NO MAMMOGRAPHIC EVIDENCE OF MALIGNANCY. ROUTINE FOLLOW-UP IS RECOMMENDED IN ONE YEAR. RESULT CODE: 1 Negative DENSITY CODE: 3 (approximately 51-75% glandular) The breasts areheterogeneously dense, which may obscure small masses. FOLLOW UP: 1YR The false-negative rate of mammography is approximately 10-percent. Management of a palpable abnormality must be based on clinical grounds. Patient was entered into a reminder system with a target due date for thenext mammogram. Impression dictated by: Luis Hurd Jr., D.O. 10/07/2024 11:26 AM Dictation Location: [facility] Dictated By: Luis Hurd Jr, DO 10/07/24 1125 Signed By: <Electronically signed by Luis Hurd Jr DO inOV> 10/07/24 1126 Reji Salcido DO IMG BI PROCEDURES Final Resu lt * IGP, APT HPV,RFX 16/18,45 (09/25/2024 12:00 AM EDT) Diagnosis: Comment [facility] Comment: NEGATIVE FOR INTRAEPITHELIAL LESION OR MALIGNANCY. THIS SPECIMEN WAS RESCREENED PART OF OUR TILE DESIGNER PROGRAM. Specimen Adequacy: Comment [facility] Comment: Satisfactory for evaluation. Endocervical and/or squamous metaplastic cells (endocervical component) are present. Clinician Provided ICD10: Comment [facility] Comment:Z12.4 Performed By: Comment [facility] Comment:Cande Saxena, Cyto logist (ASCP) QC Reviewed By: Comment [facility] Comment:Danielle Herring, Cytol ogist (ASCP) Cyto Comments . [facility] Note: Comment [facility] Comment: The Pap smear is a screening test designed to aid in the detection of premalignant and malignant conditions of the uterine cervix. It is not a diagnostic procedure and should not be used as the sole means of detecting cervical cancer. Both false-positive and false-negative reports do occur. Test Methodology: Comment [facility] Comment: This liquid based ThinPrep(R) pap test was screened with the use of an image guided system. HPV Aptima Negative Negative [facility] Comment: This nucleic acid amplification test detects fourteen high-risk HPV types (16,18,31,33,35,39,45,51,52,56,58,59,66,68) without differentiation. Swab 09/25/2024 09/26/2024 Narrative [facility] - 09/30/2024 3:07 PM EDT Performed at: - [address] [place] [id number] [place] Supervisor: Samantha Sky MD, Phone: [phone] Performed at: - [address] [place] [id number] [employer] Supervisor: aSmantha Sky MD, Phone: [phone] Specimen Comment: No. of containers..01 ThinPrep Vial Reji Salcido DO LAB BLOOD ORDERABLES Final R esult [facility] * THINPREP TIS PAP AND HPV MRNA E6/E7 WITH REFLEX TO HPV 16,18/45 (09/20/2023 11:23 AM EDT) CLINICAL INFORMATION [facility] Comment:APOHR,APOHRNG LMP [facility] Comment:NONE GIVEN PREV. PAP [facility] Comment:NONE GIVEN PREV. BX [facility] Comment:NONE GIVEN SOURCE [facility] Comment:Cervix STATEMENT OF ADEQUACY [facility] Comment:SATISFACTORY FOR CHA LUATION INTERPRETATION/RESU LT [facility] Comment: Cytology Results: Negative for intraepithelial lesion or malignancy. Atrophic pattern; predominantly parabasal cells COMMENT [facility] Comment: This Pap test has been evaluated with computer assisted technology. Parabasal cells in smears that lack maturation due to atrophy or other hormonal reasons cannot be differentiated from transformation zone cells. Accordingly, presence or absence of endocervical or transformation zone components cannot be reported in this patient. WEATHER TEACHER [facility] Comment: Reference Range: ZL, CT(ASCP) CT screening location: [facility] [place], [address] [place] [address], [place] [address]. (ALWAYS MESSAGE) [facility] Comment: EXPLANATORY NOTE: The Pap is a screening test for cervical cancer. It is not a diagnostic test and is subject to false negative and false positive results. It is most reliable when a satisfactory sample, regularly obtained, is submitted with relevant clinical findings and history, and when the Pap result is evaluated along with historic and current clinical information. HPV MRNA E6/E7 Not Detected Not Detected [facility] Comment: Methodology: Flatwork Ironer-Mediated Amplification This assay detects E6/E7 viral messenger RNA (mRNA) from 14 high-risk HPV types (16,18,31,33,35,39,45,51,52,56,58,59,66,68). Cervical sources are required for HPV testing. If a vaginal source from a patient who has had a total hysterectomy with removal of cervix was submitted, please contact the testing laboratory for alternative testing options. For additional information, please refer to http://education.[employer]/faq/AHC793z5 (This link if provided for information/ educational purposes only.) Swab (Endocervix) 09/20/2023 11:23 AM EDT 09/21/2023 3:40 AM EDT Narrative Resulting Agency Comment Performing Organization Information Site ID: [id number] Name: [facility] Address: [address] [place] [address], [address] [place] [id number] Director: Jayy Bravo MD Reji Salcido DO LAB CYTOLOGY ORDERABLES Christina heraclio Result [facility] from Last 3 Months or Most Recently Relevant to Health Maintenance Insurance [employer] Care Teams Sound Truck Operator Relationship Specialty Start Date End Date Emily Prather MD [address] [place] [phone] PCP - General Family Medicine 09/20/23
--- OUTSIDE RECORDS SUMMARY | 2024-10-11 10:52 | XMS_ITS | Encounter Summary ---
Author Organization [facility] Address [address] [place] [address] Care Team Providers Care Inspector Firearms Name Role Phone Emily Prather MD Primary Care Provider [phone] Reason for Visit * Reason Comments Med Refill Encounter Details Date Type Department Care Team (Late Contact Info) Description 08/10/2022 Refill [facility] [address] [place] [address] Reji Salcido, DO [address] [facility] [address] [place] [address] Social History Tobacco Use Types Packs/Day Years Used Date Smoking Tobacco: Never Assessed Comments Unknown Sex and Gender Information Value Date Recorded Sex Assigned at Not on file Legal Sex Female 7:24 PM EDT Gender Identity Not on file Sexual Orientation Not on file documented as of this encounter Plan of Treatment Upcoming Encounters Date Type Department Care Team (Late Contact Info) Description 09/26/2025 10:45 AM EDT Office Visit [facility] [address] [place] [address] Reji Salcido, [address] [place], [place] [phone] documented as of this encounter Visit Diagnoses Not on filedocumented in this encounter Care Teams Inspector Firearms Relationship Specialty Start Date End Date Emily Prather MD [address] [place] [phone] PCP - General Family Medicine 09/20/23 documented as of this encounter
--- OUTSIDE RECORDS SUMMARY | 2024-10-11 10:52 | XMS_ITS | Encounter Summary ---
Author Organization [facility] Address [address] [place] [place] [address] Care Team Providers Care Sports Management Intern Name Role Phone Emily Prather MD Primary Care Provider [phone] Reason for Visit * Reason Comments Med Refill Encounter Details Date Type Department Care Team (Late st Contact Info) Description 07/26/2022 Refill [facility] [address] [place] [address] Reji Salcido, [address] [place] [address] Social History Tobacco Use Types Packs/Day Years Used Date Smoking Tobacco: Never Assessed Comments Unknown Sex and Gender Information Value Date Recorded Sex Assigned at Not on file Legal Sex Female 7:24 PM EDT Gender Identity Not on file Sexual Orientation Not on file documented as of this encounter Miscellaneous Notes * Telephone Encounter - Candace Frank MA - 07/28/2022 10:04 AM EDT Called patient, no answer. LVM to call our office. Patient has yearly scheduled on 09/14/2022. * Telephone Encounter - Dulce Martinez LPN - 07/26/2022 12:29 PM EDT Patient called to get more information on refill request, last filled 10/2021. Patient also needs toschedule an annual, last exam was 09/08/2021. Got vm, message left requesting a call back. documented in this encounter Plan of Treatment Upcoming Encounters Date Type Department Care Team (Late st Contact Info) Description 09/26/2025 10:45 AM EDT Office Visit [facility] [address] [place] [address] Reji Salcido DO [address] [facility] [address] [place] [address] documented as of this encounter Visit Diagnoses Not on filedocumented in this encounter Care Teams Sports Management Intern Relationship Specialty Start Date End Date Emily Prather MD [address] [place] [address] PCP - General Family Medicine 09/20/23 documented as of this encounter
--- OUTSIDE RECORDS SUMMARY | 2024-10-11 10:52 | XMS_ITS | Encounter Summary ---
Author Organization [facility] Address [address] [place] [address] Phone Care Team Providers Care Real Estate Development Manager Name Role Phone Emily Prather MD Primary Care Provider [phone] Reason for Visit * Reason Comments Med Refill Encounter Details Date Type Department Care Team (Late st Contact Info) Description 04/04/2024 Refill [facility] [address] [facility] [address] [place] [address] Nupur Lopez MD [address] [place] [address] 2, [address] [place] [address] Elevated blood pressure reading Social History Tobacco Use Types Packs/Day Years Used Date Smoking Tobacco: Never Smokeless Tobacco: Never Alcohol Use Standard Drinks/Week Comments Yes 0 (1 standard drink = 0.6 oz pur e alcohol) social Comments Unknown Sex and Gender Information Value Date Recorded Sex Assigned at Not on file Legal Sex Female 10:03 AM EDT Gender Identity Not on file Sexual Orientation Not on file documented as of this encounter Plan of Treatment Upcoming Encounters Date Type Department Care Team (Late st Contact Info) Description 08/12/2025 10:00 AM EDT Office Visit [address] [place] [address] Nupur Lopez MD [address] [facility] 2, [address] [place] [address] documented as of this encounter Visit Diagnoses Diagnosis Elevated blood pressure reading Elevated blood pressure reading without diagnosis of hypertension documented in this encounter Care Teams Real Estate Development Manager Relationship Specialty Start Date End Date Emily Prather MD [address] [place] [address] [place] [address] PCP - General 09/19/22 documented as of this encounter
--- OUTSIDE RECORDS SUMMARY | 2024-10-11 10:52 | XMS_ITS | Encounter Summary ---
Author Organization [facility] Address [address] [place] [address] Care Team Providers Care Commercial Finance Manager Name Role Phone Emily Prather MD Primary Care Provider [phone] Encounter Details Date Type Department Care Team (Late Contact Info) Description 01/03/2023 Abstract [facility] [address] [place] [address] Gelacio Martinez DO [address] [place] [address] Social History Tobacco Use Types Packs/Day Years Used Date Smoking Tobacco: Never Smokeless Tobacco: Never Alcohol Use Standard Drinks/Week Comments Not Currently 0 (1 standard drink = 0.6 oz pur e alcohol) AUDIT-C Answer Date Recorded Q1: How often do you have a drink containing alcohol? Never 09/14/2022 Q2: How many drinks containi ng alcohol do you have on a typical day when you are drinking? Patient does not drink Q3: How often do you have si x or more drinks on one occasion? Never 09/14/2022 PHQ-2 Answer Date Recorded Patient Health Questionnaire-2 Score 0 09/14/2022 Comments No Sex and Gender Information Value Date Recorded Sex Assigned at Not on file Legal Sex Female 7:24 PM EDT Gender Identity Not on file Sexual Orientation Not on file documented as of this encounter Plan of Treatment Upcoming Encounters Date Type Department Care Team (Late st Contact Info) Description 09/26/2025 10:45 AM EDT Office Visit [facility] [place] [facility] [address] [place] [address] Reji Salcido DO [address] [facility] [address] [place] [address] documented as of this encounter Visit Diagnoses Not on filedocumented in this encounter Care Teams Commercial Finance Manager Relationship Specialty Start Date End Date Emily Prather MD [address] [place] [address] PCP - General Family Medicine 09/20/23 documented as of this encounter
--- OUTSIDE RECORDS SUMMARY | 2024-10-11 10:52 | XMS_ITS | Encounter Summary ---
Author Organization [facility] Address [address] [place] [address] Phone Care Team Providers Care Lining Cementer Name Role Phone Emily Prather MD Primary Care Provider [phone] Encounter Details Date Type Department Care Team (Late st Contact Info) Description 10/12/2022 Orders Only [facility] [address] [place] [address] Conversion, Onbase Social History Tobacco Use Types [...] Description 08/12/2025 10:00 AM EDT Office Visit [address] [place] [address] Nupur Lopez MD [address] [facility] 2, [address] [place] [address] Scheduled Orders Name Type Priority Associated Diagnoses Orde r Schedule OUTSIDE LAB SCAN Lab Ordered: 10/12/2022 documented as of this encounter Visit Diagnoses Not on filedocumented in this encounter Care Teams Lining Cementer Relationship Specialty Start Date End Date Emily Prather MD [facility] [place] [address] [place] [address] PCP - General 09/19/22 documented as of this encounter
--- OUTSIDE RECORDS SUMMARY | 2024-10-11 10:52 | XMS_ITS | Encounter Summary ---
Author Organization [facility] Address [address] [place] [address] [place] [address] Care Team Providers Care Crushed Stone Grader Name Role Phone Emily Prather MD Primary Care Provider [phone] Reason for Visit * Reason Comments Med Refill Encounter Details Date Type Department Care Team (Late Contact Info) Description 10/12/2022 Refill [facility] [address] [facility] [address] [place] [address] Reji Salcido, DO [address] [facility] [address] [place] [address] Herpes, vulvar Social History Tobacco Use Types Packs/Day Years [...] Upcoming Encounters Date Type Department Care Team ([facility] Contact Info) Description 09/26/2025 10:45 AM EDT Office Visit [facility] [address] [facility] [address] [place] [address] Reji Salcido DO [address] [facility] [address] [place] [address] documented as of this encounter Visit Diagnoses Diagnosis Herpes, vulvar documented in this encounter Care Teams Crushed Stone Grader Relationship Specialty Start Date End Date Emily Prather MD [address] [place] [phone] PCP - General Family Medicine 09/20/23 documented as of this encounter
--- OUTSIDE RECORDS SUMMARY | 2024-10-11 10:52 | XMS_ITS | Clinical Summary ---
Author Organization [facility] Address [address] [place] [address] Phone Care Team Providers Care Shirt Sorter Name Role Phone Emily Prather MD Primary Care Provider [phone] Allergies No known active allergies Medications acyclovir (Zovirax) 400 mg tablet As directed Active belimumab (Benlysta) 200 mg/mL injection Inject 1 mL (200 mg) under the skin every 7 days. Active mycophenolate (Cellcept) 500 mg tablet Take 1 tablet (500 mg) by mouth once daily. Active desogestreL-ethi nyl estradioL (Apri) 0.15-0.03 mg tablet Take 1 tablet by mouth once daily. Active hydroxychloroqui ne (Plaquenil) 200 mg tablet Take 1 tablet (200 mg) by mouth once daily. Active nebivolol (Bystolic) 5 mg tabletIndication s:Sinus tachycardia Take 1 tablet (5 mg) by mouth once daily. 90 tablet 3 5 07/20/19 26 Active Active Problems Problem Noted Date Diagnosed Date Overweight with body mass in dex (BMI) of 27 to 27.9 in adult 07/21/2023 Never smoked tobacco 07/21/2023 Elevated blood pressure read ing without diagnosis of hypertension 05/15/2023 MORRIS (dyspnea on exertion) 12/12/2022 Elevated blood pressure reading 12/12/2022 Fatigue 12/12/2022 Lupus (systemic lupus erythematosus) (Multi) 11/2022 Raynaud's phenomenon 12/12/2022 Sinus tachycardia 12/12/2022 Encounters Date Type Department Care Team Description 07/19/2024 10:00 AM EDT Office Visit [place] [address] [place] [address] Nupur Lopez MD Sinus tachycardia; Systemic lupus erythematosus, unspecified SLE type, unspecified organ involvement status (Multi); Overweight with body mass index (BMI) of 27 to 27.9 in adult; Never smoked tobacco 07/19/2024 Travel from Last 3 Months Immunizations Immunization Administration Dates Next Due Flu vaccine (IIV4), preserva tive free *Check age/dose* 11/26/2022,12/05/2021,11/24/2020,11/24,12/04/2018,12/17/2015 Flu vaccine, quadrivalent, n o egg protein, age 6 month or greater (FLUCELVAX) 12/07/2018,12/05/2018,12/09/2017,12/06,12/15/2016 Flu vaccine, trivalent, pres ervative free, age 6 months and greater (Fluarix/Fluzone/Flulaval) 12/26/2014 Influenza, Unspecified 01/06/2014,03/21/2012 Influenza, seasonal, intrade rmal, preservative free 12/05/2015 Pneumococcal conjugate vacci ne, 13-valent (PREVNAR 13) 01/29/2014 Pneumococcal polysaccharide vaccine, 23-valent, age 2 years and older (PNEUMOVAX 23) 04/21/2014 Family History Medical History Relation Name Comments No Known Problems Father No Known Problems Mother Relation Name Status Comments Father Mother Social History Tobacco Use Types Packs/Day Years [...] Sign Reading Time Taken Comments Blood Pressure 134/82 07/19/2024 10:01 AM EDT Pulse 66 07/19/2024 10:01 AM EDT Temperature - - Respiratory Rate - - Oxygen Saturation - - Inhaled Oxygen Concentration - - Weight 78.3 kg (172 lb 9.6 oz) 07/19/2024 10:01 AM EDT Height 170.2 cm (5' 7 ) 07/19/2024 10:01 AM EDT Body Mass Index 27.03 07/19/2024 10:01 AM EDT Plan of Treatment Upcoming Encounters Date Type Department Care Team (Late st Contact Info) Description 08/12/2025 10:00 AM EDT Office Visit [place] [address] [place] [address] Nupur Lopez MD [address] [facility] [address] [place] [address] Health Maintenance Due Date Last Done Comments CT Colonography 1975 Colonoscopy 1975 Colorectal Cancer Screening 1975 FIT-DNA (Cologuard) 1976 FIT 1975 HIV Screening 1975 Lipid Panel 1976 Sigmoidoscopy 1976 MMR Vaccines (1 of 1 - Standard series) 1977 COVID-19 Vaccine (#1) 1981 Diabetes Screening 1994 Hepatitis B Vaccines (1 of 3 - 19+ 3-dose series) 11/05/1995 Zoster Vaccines (1 of 2) 11/05/1995 Cervical Cancer Screening 1997 HPV/Cotest 1997 Pap Smear 1997 DTaP/Tdap/Td Vaccines (1 - Tdap) 1998 Pneumococcal Vaccine: Pediatrics and At-Risk Adult Patients (3 of 3 - PCV20 or PCV21) 04/21/2019 04/21/2014, 01/29/2014 Yearly Adult Physical 09/20/2024 09/20/2023, 023 Mammogram 10/04/2024 10/05/2023, 08/0 03/2023, 09/21/2022, Additional history exists Influenza Vaccine (#1) 2024 , 11/26/2022, 12/05/2021, Additional history exists Hepatitis C Screening Completed 09/12/2023 HIB Vaccines Aged Out No longer eligi ble based on patient's age to complete this topic HPV Vaccines Aged Out No longer eligi ble based on patient's age to complete this topic Hepatitis A Vaccines Aged Out No long er eligible based on patient's age to complete this topic IPV Vaccines Aged Out No longer eligi ble based on patient's age to complete this topic Meningococcal Vaccine Aged Out No juliann douglas eligible based on patient's age to complete this topic Rotavirus Vaccines Aged Out No longer eligible based on patient's age to complete this topic Insurance [employer] Member Subscriber Plan / Payer (Ef fective 2022-Present) Name:Cande Cordova Relation to Subscriber:Self Name:Cande Cordova Payer ID:Not on file Type:Not on file Address: [place] [phone] [employer] Member Subscriber Plan / Payer ( fective 2022-Present) Name:Cande Cordova Relation to Subscriber:Self Name:Cande Cordova Payer ID:Not on file Type:Not on file Address: [place] [phone] Care Teams Shirt Sorter Relationship Specialty Start Date End Date Emily Prather MD [address] [place] [address] [place] [address] PCP - General 09/19/22
--- OUTSIDE RECORDS SUMMARY | 2024-10-11 10:52 | XMS_ITS | Encounter Summary ---
Author Organization [facility] Address [address] [place] [address] Care Team Providers Care Planetarium Sky Show Technician Name Role Phone Emily Prather MD Primary Care Provider [phone] Encounter Details Date Type Department Care Team (Late st Contact Info) Description 09/13/2022 Abstract [facility] [address] [place] [id number] Reji Salcido DO [address] [place] [address] Social History Tobacco Use Types Packs/Day Years Used Date Smoking Tobacco: Never Assessed AUDIT-C Answer Date Recorded Q1: How often [...] Patient Health Questionnaire-2 Score 0 09/14/2022 Comments Unknown Sex and Gender Information Value Date Recorded Sex Assigned at Not on file Legal Sex Female 7:24 PM EDT Gender Identity Not on file Sexual Orientation Not on file documented as of this encounter Functional Status * Audit-C Score Answer Date of Assessment Author 0 09/14/2022 10:58 AM EDT Adela Appiah MA * Question Answer Date of Assessment Author Q1: How often do you have a drink containing alcohol? Never 09/14/2022 10:58 AM EDT Rebecca Appiah M A Q2: How many drinks containing alcohol do you have on a typical day when you are drinking? Patient does not drink 09/14/2022 10:58 AM EDT Rebecca Appiah MA Q3: How often do you have six or more drinks on one occasion? Never 09/14/2022 10:58 AM MOIT Rebecca Appiah M A * Over the past 2 weeks, how often have you been bothered by any of the following problems? Question Answer Date of Assessment Author Little interest or pleasure in doing things Not at all 09/14/2022 10:58 AM Rebecca Singh M A Feeling down, depressed, or hopeless Not at all 09/14/2022 10:58 AM Rebecca Singh M A Patient Health Questionnaire -2 Score 0 09/14/2022 10:58 AM Rebecca Singh M A documented as of this encounter Plan of Treatment Upcoming Encounters Date Type Department Care Team (Late st Contact Info) Description 09/26/2025 10:45 AM EDT Office Visit [facility] [address] [place] [phone] Reji Salcido DO [address] [facility] [address] [place] [address] documented as of this encounter Visit Diagnoses Not on filedocumented in this encounter Care Teams Planetarium Sky Show Technician Relationship Specialty Start Date End Date Emily Prather MD [address] [facility] [place] [address] PCP - General Family Medicine 09/20/23 documented as of this encounter
--- NOTE | 2024-10-11 10:53 | US_ITS ---
[address] [address] Patient Name: BIGG THOMPSON MRN: [id number] date: 1975 Sex: F Assigned Patient Location: US Current Patient Location: US Accession/Order Number: [id number] Exam Date: 10/11/2024 14:05 Report Date: 10/11/2024 14:06 At the request of: NON-STAFF PHYSICIAN MD Procedure: US abdomen limited Chronic ULTRASOUND: CLINICAL HISTORY: Chronic Left Flank Pain COMPARISON: None TECHNIQUE: Grayscale and color Doppler images of the spleen were obtained. FINDINGS: Spleen measures 7.2 x 3.8 x 7.3 cm without focal abnormality. US/US abdomen limited IMPRESSION: UNREMARKABLE SPLENIC ULTRASOUND.. Impression dictated by: Luis Hurd Jr., D.O. 10/11/2024 2:06 PM Dictation Location: [place] [address] Electronically authenticated by: [id number] Y Date: 10/11/2024 14:06
--- NOTE | 2024-10-11 10:53 | US_ITS ---
The [address] [address] Patient Name: BIGG THOMPSON MRN: [id number] date: 1975 Sex: F Assigned Patient Location: US Current Patient Location: US Accession/Order Number: [id number] Exam Date: 10/11/2024 13:38 Report Date: 10/11/2024 14:04 At the request of: NON-STAFF PHYSICIAN MD Procedure: US renal BI BILATERAL RENAL AND BLADDER ULTRASOUND CLINICAL HISTORY: Chronic Left Flank Pain COMPARISON: None FINDINGS: Estimation of renal size is approximately 8.9 cm on the right and 10.0 cm on the left. Bilateral punctate nephrolithiasis. Mild left-sided hydronephrosis. Small cyst with likely dependent calcification measuring 8 mm too small for accurate characterization. The urinary bladder is partially distended with a volume of 441 mL ml. No shadowing stone or focal lesion. US/US renal BI IMPRESSION: BILATERAL PUNCTATE NEPHROLITHIASIS. MILD LEFT-SIDED HYDRONEPHROSIS. DISTAL OBSTRUCTION CANNOT BE EXCLUDED. THIS CAN BE FURTHER EVALUATED BY CT. Impression dictated by: Terra Wiseman Jr.OJulee 10/11/2024 2:04 PM Dictation Location: [place] [address] Electronically authenticated by: [id number] Y Date: 10/11/2024 14:04
== END 2024-10-11 10:50 | disposition home or self-care (01) ==
LOC: US 10:49
PROVIDERS: PCP Family Medicine
DX: R10.9 Unspecified abdominal pain (principal); G89.29 Other chronic pain
CPT/HCPCS: 76705; 76775